=== PATIENT | female | born 1995 | race Caucasian/White ===

== ENCOUNTER 2016-10-21 08:24 | Emergency (ER) | payer OTHER ==
[~2016-10-21] VITALS: Ht 152.4 cm; Wt 68.0 kg
[2016-10-21 10:59] VITALS: BP 120/72
== END 2016-10-21 10:59 | disposition home or self-care (01) ==
LOC: ED 08:24
DX: R10.2 Pelvic and perineal pain (principal); R10.32 Left lower quadrant pain
CPT/HCPCS: 87491; 87591; J0696

== ENCOUNTER 2017-03-26 10:42 | Emergency (ER) | payer OTHER ==
[~2017-03-26] VITALS: Ht 152.4 cm; Wt 66.7 kg
[2017-03-26 10:53] VITALS: Ht 152.4 cm; Wt 66.7 kg
[2017-03-26 13:34] VITALS: BP 119/77
== END 2017-03-26 13:34 | disposition home or self-care (01) ==
LOC: ED 10:42
DX: B37.9 Candidiasis, unspecified (principal)
CPT/HCPCS: 87491; 87591

== ENCOUNTER 2017-04-09 02:46 | Emergency (ER) | payer OTHER ==
[~2017-04-09] VITALS: Ht 149.9 cm; Wt 66.2 kg
[2017-04-09 03:16] VITALS: Ht 149.9 cm; Wt 66.2 kg
[2017-04-09 08:34] VITALS: BP 113/75
== END 2017-04-09 08:34 | disposition home or self-care (01) ==
LOC: ED 02:46
DX: J02.9 Acute pharyngitis, unspecified (principal)
CPT/HCPCS: 87804

== ENCOUNTER 2018-11-21 11:12 | Emergency (ER) | payer OTHER ==
[~2018-11-21] VITALS: Ht 152.4 cm; Wt 64.9 kg
[2018-11-21 11:14] VITALS: Ht 152.4 cm; Wt 64.9 kg
[2018-11-21 13:25] VITALS: BP 123/84
== END 2018-11-21 13:25 | disposition home or self-care (01) ==
LOC: ED 11:12
DX: L98.8 Other specified disorders of the skin and subcutaneous tissue (principal)
CPT/HCPCS: J2001

== ENCOUNTER 2018-11-24 09:08 | Emergency (ER) | payer OTHER ==
[~2018-11-24] VITALS: Ht 152.4 cm; Wt 64.9 kg
[2018-11-24 09:14] VITALS: Ht 152.4 cm; Wt 64.9 kg
[2018-11-24 10:15] VITALS: BP 121/79
== END 2018-11-24 10:15 | disposition home or self-care (01) ==
LOC: ED 09:08
DX: Z48.01 Encounter for change or removal of surgical wound dressing (principal); Z98.890 Other specified postprocedural states

== ENCOUNTER 2018-11-27 08:37 | Emergency (ER) | payer OTHER ==
[~2018-11-27] VITALS: Ht 152.4 cm; Wt 64.0 kg
[2018-11-27 08:42] VITALS: Ht 152.4 cm; Wt 64.0 kg
[2018-11-27 09:57] VITALS: BP 119/84
== END 2018-11-27 09:57 | disposition home or self-care (01) ==
LOC: ED 08:37
DX: S61.214D Laceration without foreign body of right ring finger without damage to nail, subsequent encounter (principal); X58.XXXA Exposure to other specified factors, initial encounter; Y93.89 Activity, other specified; Y92.89 Other specified places as the place of occurrence of the external cause; Y99.8 Other external cause status

== ENCOUNTER 2019-09-07 09:40 | Emergency (ER) | payer OTHER ==
[~2019-09-07] VITALS: Ht 162.6 cm; Wt 64.9 kg
[2019-09-07 09:46] VITALS: BP 118/76; Ht 162.6 cm; Wt 64.9 kg
== END 2019-09-07 11:13 | disposition home or self-care (01) ==
LOC: ED 09:40
DX: M77.9 Enthesopathy, unspecified (principal)
CPT/HCPCS: Q0092